=== PATIENT | female | born 1955 | race Caucasian/White ===

== ENCOUNTER 2023-07-01 13:31 | Emergency (ER) | payer OTHER ==
[~2023-07-01] VITALS: Ht 152.4 cm; Wt 49.9 kg
[2023-07-01] MEDS ORDERED: Ondansetron 4 MG SoluTab SL ONE (13:45)
[2023-07-01] MEDS ORDERED: HYDROcodone 7.5-APAP 325 TAB PO ONE (13:45)
[2023-07-01] MEDS ORDERED: HYDR1TAB94 PO (15:48)
[2023-07-01] MEDS ORDERED: Ondansetron HCl 2 MG / ML 2ML Vial IV ONE (16:05)
[2023-07-01] MEDS ORDERED: FentaNYL Citrate 50 MCG/ML 2 ML Injection IV ONE (16:05)
[2023-07-01] MEDS ORDERED: propofoL 100 ML IV SCH (16:15)
[2023-07-01] MEDS ORDERED: propofoL 20 ML IV SCH (16:20)
[2023-07-01] MEDS ORDERED: NS 1,000 ML IV ONE (16:36)
[2023-07-01] MEDS ORDERED: NS 1,000 ML IV SCH (16:40)
== END 2023-07-01 17:34 | disposition home or self-care (01) ==
LOC: ER 13:31
DX: S43.014A Anterior dislocation of right humerus, initial encounter (principal); W10.9XXA Fall (on) (from) unspecified stairs and steps, initial encounter
CPT/HCPCS: 73030; 73060; A9270; J2405; J2704; J3010; J7030